=== PATIENT | female | born 1935 | race Two or more races ===

== ENCOUNTER → 2024-12-31 | Day surgery (SDC) | payer MEDICARE, OTHER ==
[2024-12-27 10:25] LABS: Basophils # (auto) 0 10 ^3/uL (0-0.2); Basophils % (auto) 0.2 % (0.0-2.0); Eosinophils # (auto) 0.1 10 ^3/uL (0-0.8); Hematocrit 40.5 % (36.0-46.0); Hemoglobin 13.7 g/dL (12.2-16.2); Lymphocytes # (auto) 1.4 10 ^3/uL (0.4-5.4); Lymphocytes % (auto) 16.7 % (10.0-50.0); Mean Corpuscular Hemoglobin 33.4 pg (28.0-32.0); Mean Corpuscular Hgb Conc. 33.9 g/dL (32.0-36.0); Mean Corpuscular Volume 98.7 fL (80.0-100.0); Monocytes # (auto) 0.9 10 ^3/uL (0-1.3); Monocytes % (auto) 10.9 % (0.0-12.0); Neutrophils # (auto) 6.1 10 ^3/uL (1.6-8.6); Neutrophils % (auto) 71.2 % (37.0-80.0); Platelet Count (auto) 251 10^3/uL (140-450); Red Blood Cells 4.11 10^6/uL (4.0-5.20); Red Cell Distribution Width 14.4 % (11.8-14.3); White Blood Cell 8.5 10^3/uL (4.4-10.8)
[2024-12-27 10:48] LABS: Alanine Aminotransferase 21 U/L (7-40); Alkaline Phosphatase 74 U/L (46-116); Anion Gap 7 (5-15); Aspartate Aminotransferase 18 U/L (13-40); BUN/Creatinine Ratio 26.8 (10.0-20.0); Blood Urea Nitrogen 19 mg/dL (9-23); Carbon Dioxide 27 mmol/L (20-31); Chloride 104 mmol/L (98-107); Glucose 105 mg/dL (74-106); Potassium 4.7 mmol/L (3.5-5.1); Sodium 138 mmol/L (136-145); Total Protein 7.6 g/dL (5.7-8.2)
[2024-12-27 10:49] LABS: Albumin 4.8 g/dL (3.2-4.8); Bilirubin, Total 0.5 mg/dL (0.2-1.0)
[2024-12-27 10:50] LABS: INR 0.99 (0.9-1.15); Partial Thromboplastin Time 28.2 SEC (24.5-34.5); Prothrombin Time 10.5 sec (9.3-11.8)
[~2024-12-31] VITALS: Ht 153 cm; Wt 59.0 kg
[~2024-12-31] MED LIST: AMLO1TAB22 PO; IBUP-1456 PO; MIDAZOLAM HCL 2MG/2ML 2ml VIAL (1mg/ml) ONE; MULT-1018 OR; PROPOFOL 10 MG/ML 20 ML IV ONE; ceFAZolin 2 GM/D5W50ml 50 ML IV ONE; fentaNYL CITRATE 100 MCG/2 ML VL ONE
[2024-12-31 07:45] VITALS: BP 178/85; PULSE 67; RESP 20; TEMP 98.3; O2SAT 96
== END | disposition home or self-care (01) ==
LOC: SUR 07:34
PROVIDERS: ATTEND Orthopaedic Surgery
DX: M87.052 Idiopathic aseptic necrosis of left femur (principal); M16.7 Other unilateral secondary osteoarthritis of hip; Z53.8 Procedure and treatment not carried out for other reasons
CPT/HCPCS: 36415; 80053; 83036; 85025; 85610; 85730; 86850; 86900; 86901; J0690; J2250; J2704; J3010

== ENCOUNTER 2025-02-25 07:41 | Inpatient (IN) | payer MEDICARE, OTHER ==
[2025-02-24 11:37] LABS: Hematocrit 40.9 % (36.0-46.0); Hemoglobin 13.9 g/dL (12.2-16.2); Mean Corpuscular Hemoglobin 34.2 pg (28.0-32.0); Mean Corpuscular Volume 100.9 fL (80.0-100.0); Nucleated Red Blood Cells % 0.1 %
[2025-02-24 11:46] LABS: INR 0.99 (0.9-1.15); Partial Thromboplastin Time 27.6 SEC (24.5-34.5); Prothrombin Time 10.5 sec (9.3-11.8)
[2025-02-24 12:18] LABS: Alanine Aminotransferase 20 U/L (7-40); Albumin 4.8 g/dL (3.2-4.8); Alkaline Phosphatase 73 U/L (46-116); Anion Gap 10 (5-15); BUN/Creatinine Ratio 28.8 (10.0-20.0); Blood Urea Nitrogen 19 mg/dL (9-23); Carbon Dioxide 27 mmol/L (20-31); Chloride 105 mmol/L (98-107); Glucose 97 mg/dL (74-106); Potassium 3.8 mmol/L (3.5-5.1); Sodium 142 mmol/L (136-145); Total Protein 7.4 g/dL (5.7-8.2)
[2025-02-24 12:19] LABS: Bilirubin, Total 0.3 mg/dL (0.2-1.0)
[2025-02-24 12:22] LABS: Calcium 10.7 mg/dL (8.7-10.4)
[~2025-02-25] VITALS: Ht 153 cm; Wt 67.9 kg
[~2025-02-25 07:41] MED LIST changes: -MIDAZOLAM HCL 2MG/2ML 2ml VIAL (1mg/ml) ONE; -PROPOFOL 10 MG/ML 20 ML IV ONE; -ceFAZolin 2 GM/D5W50ml 50 ML IV ONE; -fentaNYL CITRATE 100 MCG/2 ML VL ONE
[2025-02-25] MEDS ORDERED: MIDAZOLAM HCL 2MG/2ML 2ml VIAL (1mg/ml) ONE (08:41)
[2025-02-25] MEDS ORDERED: fentaNYL CITRATE 100 MCG/2 ML VL ONE (08:41)
[2025-02-25] MEDS: TRANEXAMIC ACID 20 ML ONE (08:41)
[2025-02-25] MEDS ORDERED: PROPOFOL 10 MG/ML 20 ML IV ONE (08:41)
[2025-02-25] MEDS: ROPIVACAINE 0.5% (5MG/ML) 20ML AMPULE IJ ONE ×2 (08:41→11:45)
[2025-02-25] MEDS: BUPIVACAINE 0.25% INJ 50ML VIAL ONE (08:41)
[2025-02-25] MEDS: KETOROLAC TROMETH 30 MG/ML 1ML VIAL ONE (08:43)
[2025-02-25] MEDS: BUPIVACAINE 0.5% P/F INJ 10 ML VIAL ONE (08:50)
[2025-02-25] MEDS ORDERED: MORPHINE SULF PF 5 MG/10 ML VIAL ONE (09:24)
[2025-02-25] MEDS: ceFAZolin 2 GM/D5W50ml 50 ML IV ONE (10:00)
[2025-02-25] MEDS ORDERED: hydrALAZINE HCL 20 MG/ML VL ONE (10:59)
--- NOTE | 2025-02-25 11:42 | DVHOP2 ---
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 These include but are not limited to complications of anesthesia, postoperative infection, incomplete relief of symptoms, recurrence of symptoms, damage to blood vessels, nerves and tendons, deep venous thrombosis, pulmonary embolism and possible need for repeat surgery in the future. Complications: None Estimated Blood Loss: 100 cc Fluids: See anesthesia record Findings: Head deformity, denuded cartilage eburnated bone osteophytes proximal migration of hip with medial acetabular wear early to the pelvis inner cortex Indications for Surgery: Left hip degenerative arthritis with severe pain and functional impairment Name of Procedure Performed Left total hip arthroplasty Procedure Details Procedure Details: The patient was brought to the operating room and given spinal anesthetic with adequate analgesia obtained. The patient was positioned lateral decubitus with the operative side up, stabilized with hip positioners. Axillary roll applied and lower extremities well-padded. Preop patient received IV Ancef, cefepime and IV tranexamic acid. Surgical timeout was performed verifying patient, laterality and procedure. The hip and lower extremity were prepped and draped in sterile fashion. Incision was made over the greater trochanter. Subcutaneous dissection and hemostasis were performed with Bovie and aqua mantis. I identified the fascia which was incised with Bovie and Charnley retractor inserted. I identified the gluteus medius that was split at the junction of its anterior and middle thirds with Bovie then incised off the anterior greater trochanter. I incised the anterior gluteus minimus which was elevated off the capsule. I elevated the reflected head of the rectus. I then performed anterior capsulectomy with Bovie. I extended capsular incision posterior medially and superior laterally. The head was dislocated. Femoral neck cut was made with saw and head removed. Head diameter was calipered on the back table. I adjusted retractors to expose the acetabulum. I circumfer entially removed labral tissue with Bovie. I removed foveal tissue with Bovie, curette and rongeur. I then began reaming sequentially paying attention to inclination and version as I went. I trialed which was stable so acetabular implant was brought into the field and tapped into the acetabulum with good fixation achieved. I then brought up the flat liner which was spun to make sure there was no soft tissue entrapment then tapped in and stability verified. I then brought my attention to the proximal femur. The leg was placed in the sterile bag anteriorly. I cleaned up soft tissue at the greater trochanter shoulder with Bovie. I then used a rongeur to clip the lateral neck. I then used a box osteotome, canal finder and lateralizing rasp. I sequentially broached to size 4. I revised the femoral neck cut with calcar planer. I trialed with a +4 neck length and 32 head which was stable. Intraoperative AP pelvis x-ray was obtained to verify length, offset and implant size. The hip appeared short though it did previously migrated quite a bit proximally preop. Stem looked to be appropriate size. The hip was dislocated. Neck and head trial removed. Broach was removed. I tapped in the femoral implant with good fixation achieved. I trialed with a plus seven head which was stable. I cleaned and dried the Burrows taper and tapped on the ceramic head. The hip was again reduced and tested for stability which was good. I irrigated with bactisurge. I placed a 2 grams of vancomycin in the deep and superficial wound. I repaired the minimus and medius to the anterior greater trochanter with #[5] FiberWire in running fashion . I oversewed the repair with 0 Vicryl. I repaired the fascia with #1 Ethibond interrupted [id number]. Deep subcutaneous tissue was closed with 0 Vicryl. Superficial subcutaneous tissue was closed with 2-0 Vicryl. The skin was closed with karthik. I then applied the Delroy closed wound suction. Patient tolerated the procedure well and was brought to the recovery room in stable condition. Condition Stable Disposition Still a Patient JONAS TONG MD Feb 25, 2025 11:42
[2025-02-25] MEDS ORDERED: ONDANSETRON HCL 4 MG/2 ML VIAL IV PRN (11:45)
[2025-02-25] MEDS: VANCOMYCIN HCL 1000 MG VL ONE (11:45)
--- NOTE | 2025-02-25 12:03 | DVH ---
CLINICAL INDICATION: SURGERY TECHNIQUE: 1 radiographic views of the pelvis were obtained. Comparison: None FINDINGS/IMPRESSION: Status post right hip arthroplasty
[2025-02-25 12:07] VITALS: O2SAT 98
--- NOTE | 2025-02-25 12:52 | DVH ---
CLINICAL INDICATION: postop TECHNIQUE: 1 radiographic views of the pelvis were obtained. Comparison: XY PELVIS AP on DOS: 02/25/25 FINDINGS/IMPRESSION: Status post right hip arthroplasty.
[2025-02-25] MEDS: HYDROmorphone HCL 2 MG/ML VL/or syr IV PRN (13:42)
[2025-02-25] MEDS: ACETAMINOPHEN IV 1000 MG/100ML (10MG/ML) IV PRN (13:57)
[2025-02-25] MEDS: ONDANSETRON HCL 4 MG/2 ML VIAL IV ONE (15:54)
[2025-02-25] MEDS: ACETAMINOPHEN 325 MG TAB PO SCH (15:55)
[2025-02-25 16:54] VITALS: BP 128/77; PULSE 60; RESP 18; TEMP 98.1; O2SAT 98
[2025-02-25] MEDS: SODIUM CHLORIDE 0.9% 1,000 ML IV SCH (17:03)
[2025-02-25] MEDS: ceFAZolin 2 GM/D5W50ml 50 ML IV SCH (17:03)
[2025-02-25 20:00] VITALS: PULSE 63; RESP 20; O2SAT 96
[2025-02-25 21:00] VITALS: BP 129/76; PULSE 63; RESP 20; TEMP 97.7; O2SAT 96
[2025-02-25] MEDS: PREGABALIN 25 MG CAP PO SCH (21:42)
[2025-02-26] VITALS (8 sets, daily range): BP systolic 113–134; BP diastolic 60–79; PULSE 65–77; RESP 16–22; TEMP 97.5–99.2; O2SAT 92–96
[2025-02-26] MEDS: KETOROLAC TROMETH 30 MG/ML 1ML VIAL IV ONE (01:27)
[2025-02-26 06:54] LABS: Calcium 9.5 mg/dL (8.7-10.4); Chloride 103 mmol/L (98-107); Potassium 3.6 mmol/L (3.5-5.1); Sodium 138 mmol/L (136-145)
[2025-02-26 06:55] LABS: Anion Gap 12 (5-15); Carbon Dioxide 23 mmol/L (20-31)
[2025-02-26 07:00] LABS: BUN/Creatinine Ratio 27.2 (10.0-20.0); Blood Urea Nitrogen 22 mg/dL (9-23)
[2025-02-26 07:02] LABS: Glucose 144 mg/dL (74-106)
--- NOTE | 2025-02-26 09:15 | DVHDS2 ---
Discharge Summary Date of Admission Feb 25, 2025 at 11:28 Date of Discharge: Feb 26, 2025 Labs/Diagnostic Data: Laboratory Results Test 02/26/25 04:54 02/24/25 11:00 Sodium Level 138 mmol/L (136-145) Potassium Level 3.6 mmol/L (3.5-5.1) Chloride Level 103 mmol/L (98-107) Carbon Dioxide Level 23 mmol/L (20-31) Anion Gap 12 (5-15) Blood Urea Nitrogen 22 mg/dL (9-23) Creatinine 0.81 mg/dL (0.550-1.02) Glomerular Filtration Rate Calc 70 mL/min (>90) BUN/Creatinine Ratio 27.2 (10.0-20.0) Serum Glucose 144 mg/dL (74-106) Calcium Level 9.5 mg/dL (8.7-10.4) White Blood Count 6.9 10^3/uL (4.4-10.8) Red Blood Count 4.06 10^6/uL (4.0-5.20) Hemoglobin 13.9 g/dL (12.2-16.2) Hematocrit 40.9 % (36.0-46.0) Mean Corpuscular Volume 100.9 fL (80.0-100.0) Mean Corpuscular Hemoglobin 34.2 pg (28.0-32.0) Mean Corpuscular Hemoglobin Concent 33.9 g/dL (32.0-36.0) Red Cell Distribution Width 14.1 % (11.8-14.3) Platelet Count 227 10^3/uL (140-450) Mean Platelet Volume 7.2 fL (6.9-10.8) Neutrophils (%) (Auto) 63.9 % (37.0-80.0) Lymphocytes (%) (Auto) 22.9 % (10.0-50.0) Monocytes (%) (Auto) 11.2 % (0.0-12.0) Eosinophils (%) (Auto) 1.6 % (0.0-7.0) Basophils (%) (Auto) 0.4 % (0.0-2.0) Neutrophils # (Auto) 4.4 10 ^3/uL (1.6-8.6) Lymphocytes # (Auto) 1.6 10 ^3/uL (0.4-5.4) Monocytes # (Auto) 0.8 10 ^3/uL (0-1.3) Eosinophils # (Auto) 0.1 10 ^3/uL (0-0.8) Basophils # (Auto) 0 10 ^3/uL (0-0.2) Nucleated Red Blood Cells 0.1 % Prothrombin Time 10.5 sec (9.3-11.8) Prothrombin Time INR 0.99 (0.9-1.15) Activated Partial Thromboplast Time 27.6 SEC (24.5-34.5) Total Bilirubin 0.3 mg/dL (0.2-1.0) Aspartate Amino Transferase (AST) 29 U/L (13-40) Alanine Aminotransferase (ALT) 20 U/L (7-40) Alkaline Phosphatase 73 U/L (46-116) Total Protein 7.4 g/dL (5.7-8.2) Albumin 4.8 g/dL (3.2-4.8) Other Laboratory Tests 02/26/25 04:54 02/24/25 11:00 Brief Hx & Hospital Course: PATIENT WAS BROUGHT TO THE HOSPITAL YESTERDAY TO UNDERGO A LEFT TOTAL HIP ARTHROPLASTY. SHE TOLERATED THE PROCEDURE WELL WITHOUT COMPLICATIONS AND WAS KEPT OVERNIGHT FOR POSTOPERATIVE OBSERVATION. SHE HAS REMAINED MEDICALLY STABLE BUT REPORTS SOME SEVERE POSTOPERATIVE HIP PAIN LAST NIGHT THAT IS BEING WELL MANAGED NOW WITH THE HELP OF PAIN MEDICATION. PATIENT NOTES THAT SHE HAS ONLY BEEN ABLE TO STAND UP AT BEDSIDE BUT HAS NOT BEEN ABLE TO WALK WITH PHYSICAL THERAPY OF YET. PATIENT IS OTHERWISE FEELING WELL DENYING ANY OTHER COMPLAINTS OR CONCERNS DURING MY EVALUATION. I INSTRUCTED THE PATIENT TO THE IF SHE IS ABLE TO GET UP AND WALK WITH THE HELP OF PHYSICAL THERAPY AND HER WALKER AND SHE IS ABLE TO GET DOWN THE GRANT AND TO THE NURSE'S STATION AND BACK TO HER ROOM WE MAY DISCHARGE HER HOME. PATIENT UNDERSTOOD AND AGREED. Condition at Discharge: Stable Final Diagnosis/Problems List Same Discharge Disposition: Home Discharge Instruct/Medications Diet: Regular Activity: See Comment Activity comment: Patient to remain weight-bearing as tolerated with the assistance of a walker. Follow Up/Referral: I instructed the patient to follow up with our office in 10-14 days for her 1st postoperative evaluation Medications: Rx sent via our outpatient EMR system Scheduled Amlodipine Besylate (Amlodipine Besylate), 5 MG PO DAILY, (Reported) Multiple Vitamin (Multivitamins), 1 TAB OR DAILY, (Reported) Scheduled PRN Ibuprofen (Ibuprofen), 800 MG PO PRN PRN for prn, (Reported) Discharge Statement: "Patient was advised to return to the ER or call 911 if any headaches, dizziness, shortness of breath, chest pain, abdominal pain, bleeding, fevers, or worsening of medical condition. Patient was counseled about treatment plan, medications, possible side effects, patientverbalized understanding. All questions were answered to the best of my ability. This discharge took greater then 30 minutes in planning, reviewing documentation, counseling the patient, and discussing with other team members." ASSESSMENT ASSESSMENT Assessment Same DENIZ RODRIGUEZ Feb 26, 2025 09:15
--- NOTE | 2025-02-26 09:17 | DVHPN2 ---
Progress Note - Dictate Date Seen: Feb 26, 2025 Medical Necessity Reason Pt with a Central, PICC or Fol: No Subjective Patient was lying comfortably in bed during my evaluation reports some postoperative hip pain that is being well managed with the help of pain medication now but does report that last night was having severe pain. Patient notes that she has only perform some gentle [id number] exercises while in bed but has not yet gotten up and walked with physical therapy. Patient is otherwise feeling well denying any other complaints or concerns during my evaluation. vital signs Vital Sign Date Time Temp Pulse Resp B/P (MAP) Pulse Ox O2 Delivery O2 Flow Rate FiO2 02/26/25 05:00 98.7 72 16 113/60 (77) 93 98.7 02/25/25 20:00 Room Air* 0 21 Total Intake and Output 02/25/25 02/25/25 02/26/25 15:00 23:00 07:00 Intake Total 150 ml 0 ml 0 ml Output Total 650 ml 250 ml Balance 150 ml -650 ml -250 ml medications Current Medications Medications Dose Ordered Sig/Ata Route Start Time Stop Time Status Last Admin Dose Admin Amlodipine Besylate 5 mg DAILY PO 02/26/25 10:00 Pregabalin 50 mg BID PO 02/25/25 22:00 02/25/25 21:42 50 MG Apixaban 2.5 mg BID PO 02/26/25 10:00 04/02/25 09:59 Sodium Chloride 1,000 ml @ 125 mls/hr Q8H IV 02/25/25 11:30 02/26/25 06:22 125 MLS/HR Acetaminophen 650 mg Q6HP PO 02/25/25 12:00 02/25/25 17:54 650 MG Ondansetron HCl 4 mg Q4HP PRN IV 02/25/25 11:45 Oxycodone HCl 5 mg Q4HP PRN PO 02/25/25 11:30 02/25/25 23:34 5 MG Oxycodone HCl 10 mg Q4HP PRN PO 02/25/25 11:30 02/26/25 06:29 10 MG objective A&O x4 in no acute distress Hip range of motion grossly limited with pain on movement Delroy dressing clean, dry, intact, and maintaining suction No distal edema or calf tenderness to palpation Neurovascularly intact with cap refill less than 2 seconds laboratory and microbiology Laboratory Tests 02/26/25 04:54 02/24/25 11:00 Test 02/26/25 04:54 Range/Units Serum Glucose 144 H 74-106 mg/dL Assessment/Plan Patient to be discharged home once she is able to get up and walk with the help of physical therapy and her walker and she is able to get down to the nurse's station and back to her room. I advised the patient to follow up with our office in 10-14 days for her 1st postoperative evaluation and to maintain her dressings clean, dry, intact, and maintaining suction and to call our office if she has any further questions or concerns. Rx sent via our outpatient EMR system. She understood and agreed. Plan discussed with: Patient DENIZ RODRIGUEZ Feb 26, 2025 09:17
[2025-02-26] MEDS: APIXABAN 2.5 MG TAB PO SCH (10:42)
--- NOTE | 2025-02-26 13:36 | DVHINCON2 ---
Date Seen: Feb 26, [address] TONG Family History: Aneurysm G8 MOTHER Allergies: Coded Allergies: NO KNOWN ALLERGIES (Unverified , 12/26/24) Home Meds Reported Medications Multiple Vitamin (Multivitamins) Tab, 1 TAB OR DAILY, TAB 12/26/24 Amlodipine Besylate (Amlodipine Besylate) 5 Mg Tab, 5 MG PO DAILY, TAB 12/26/24 Ibuprofen (Ibuprofen) 800 Mg Tab, 800 MG PO PRN PRN for prn, TAB 12/26/24 Current Medications Current Medications Medications (Trade) Dose Ordered Sig/Ata Route PRN Reason Start Time Stop Time Status Last Admin Amlodipine Besylate (Norvasc Tablet) 5 mg DAILY PO 02/26/25 10:00 02/26/25 10:42 Pregabalin (Lyrica Capsule) 50 mg BID PO 02/25/25 22:00 02/26/25 10:42 Apixaban (Eliquis) 2.5 mg BID PO 02/26/25 10:00 04/02/25 09:59 02/26/25 10:42 Cefazolin Sodium/ Dextrose 50 ml @ 50 mls/hr Q8HR IV 02/25/25 14:00 02/25/25 22:59 DC 02/25/25 21:41 Vital Signs Vital Signs Date Time Temp Pulse Resp B/P (MAP) Pulse Ox O2 Delivery O2 Flow Rate FiO2 02/26/25 10:42 118/62 02/26/25 09:00 98.5 70 16 92 98.5 02/26/25 08:05 Room Air* 0 21 Labs/Diagnostic Data Labs Test 02/26/25 04:54 02/24/25 11:00 Range/Units Sodium Level 138 136-145 mmol/L Potassium Level 3.6 3.5-5.1 mmol/L Chloride Level 103 98-107 mmol/L Carbon Dioxide Level 23 20-31 mmol/L Anion Gap 12 5-15 Blood Urea Nitrogen 22 9-23 mg/dL Creatinine 0.81 0.550-1.02 mg/dL Glomerular Filtration Rate Calc 70 >90 mL/min BUN/Creatinine Ratio 27.2 H 10.0-20.0 Serum Glucose 144 H 74-106 mg/dL Calcium Level 9.5 8.7-10.4 mg/dL White Blood Count 6.9 4.4-10.8 10^3/uL Red Blood Count 4.06 4.0-5.20 10^6/uL Hemoglobin 13.9 12.2-16.2 g/dL Hematocrit 40.9 36.0-46.0 % Mean Corpuscular Volume 100.9 H 80.0-100.0 fL Mean Corpuscular Hemoglobin 34.2 H 28.0-32.0 pg Mean Corpuscular Hemoglobin Concent 33.9 32.0-36.0 g/dL Red Cell Distribution Width 14.1 11.8-14.3 % Platelet Count 227 140-450 10^3/uL Mean Platelet Volume 7.2 6.9-10.8 fL Neutrophils (%) (Auto) 63.9 37.0-80.0 % Lymphocytes (%) (Auto) 22.9 10.0-50.0 % Monocytes (%) (Auto) 11.2 0.0-12.0 % Eosinophils (%) (Auto) 1.6 0.0-7.0 % Basophils (%) (Auto) 0.4 0.0-2.0 % Neutrophils # (Auto) 4.4 1.6-8.6 10 ^3/uL Lymphocytes # (Auto) 1.6 0.4-5.4 10 ^3/uL Monocytes # (Auto) 0.8 0-1.3 10 ^3/uL Eosinophils # (Auto) 0.1 0-0.8 10 ^3/uL Basophils # (Auto) 0 0-0.2 10 ^3/uL Nucleated Red Blood Cells 0.1 % Prothrombin Time 10.5 9.3-11.8 sec Prothrombin Time INR 0.99 0.9-1.15 Activated Partial Thromboplast Time 27.6 24.5-34.5 SEC Total Bilirubin 0.3 0.2-1.0 mg/dL Aspartate Amino Transferase (AST) 29 13-40 U/L Alanine Aminotransferase (ALT) 20 7-40 U/L Alkaline Phosphatase 73 46-116 U/L Total Protein 7.4 5.7-8.2 g/dL Albumin 4.8 3.2-4.8 g/dL Assessment SEE DICTATED NOTE Plan discussed with: Patient Date of Service: Feb 26, 2025 Billing Provider: SYLVAIN GARDINER MD Common Visit Codes: [id number] INP/OBS CARE (HIGH) Secondary Visit Codes: [id number] CARE PLAN 30 MINUTES SYLVAIN GARDINER MD Feb 26, 2025 13:36
--- NOTE | 2025-02-26 15:46 | DVHINCON2 ---
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 The patient at this time complains of pain and has been able to ambulate about 3-4 steps. No chest pain, no shortness of breath, no nausea or vomiting. REVIEW OF SYSTEMS: Otherwise currently negative. PAST MEDICAL HISTORY: Significant for hypertension. MEDICATIONS: She takes amlodipine and ibuprofen. ALLERGIES: No known drug allergies. SOCIAL HISTORY: Denies smoking or alcohol. Lives at home with her son. FAMILY HISTORY: Negative. PHYSICAL EXAMINATION: GENERAL: The patient is awake and alert. VITAL SIGNS: Temperature of 98.5, pulse 70 per minute, blood pressure 118/62. SHEENT: Unremarkable. NECK: There is no JVD. No pedal edema. LUNGS: Equal bilaterally. No added sounds. CARDIOVASCULAR: S1 and S2 is regular. No murmurs. ABDOMEN: Soft. There is no organomegaly. NEUROLOGIC: Nonfocal. MUSCULOSKELETAL: There is a dressing at the site of the left hip. ASSESSMENT AND PLAN: * Hypertension for which the patient will resume on amlodipine. * Status post left hip surgery for avascular necrosis for which she will receive physical therapy and pain medications. ADVANCED CARE PLANNING: The patient is a full code-Time spent was 18 minutes. MD IKER Leavitt/[place] TID: [id number] RECEIPT: [id number] MTDD
[2025-02-27 05:00] VITALS: BP 145/73; PULSE 84; RESP 17; TEMP 97.5; O2SAT 94
[2025-02-27 08:00] VITALS: RESP 20
[2025-02-27 08:34] VITALS: BP 148/75; PULSE 83; RESP 16; TEMP 98.6; O2SAT 92
[2025-02-27] MEDS: hydrALAZINE HCL 20 MG/ML VL IV ONE (10:22)
[2025-02-27] MEDS: MORPHINE SULFATE INJ 2 MG/ml SYRG IV ONE (10:22)
--- NOTE | 2025-02-27 11:07 | DVHPN2 ---
Progress Note Date Seen: Feb 27, 2025 Medical Necessity Reason Pt with a Central, PICC or Fol: No Subjective Patient reports: No new complaints Review of Systems: HEENT:Normal, CVS:Normal, RESPIRATORY:Normal, GI:Normal, :Normal, MSK:Normal, NEURO:Normal Objective vital signs Vital Sign Date Time Temp Pulse Resp B/P (MAP) Pulse Ox O2 Delivery O2 Flow Rate FiO2 02/27/25 10:22 148/75 02/27/25 08:34 98.6 83 16 92 98.6 02/26/25 20:00 Room Air* 0 21 Total Intake and Output 02/26/25 02/26/25 02/27/25 15:00 23:00 07:00 Intake Total 800 ml Output Total 175 ml 300 ml Balance 625 ml -300 ml medications Current Medications Medications Dose Ordered Sig/Ata Route Start Time Stop Time Status Last Admin Dose Admin Amlodipine Besylate 5 mg DAILY PO 02/26/25 10:00 02/27/25 10:22 5 MG Pregabalin 50 mg BID PO 02/25/25 22:00 02/27/25 10:20 50 MG Apixaban 2.5 mg BID PO 02/26/25 10:00 04/02/25 09:59 02/27/25 10:21 2.5 MG Acetaminophen 650 mg Q6HP PO 02/25/25 12:00 02/25/25 17:54 650 MG Ondansetron HCl 4 mg Q4HP PRN IV 02/25/25 11:45 Oxycodone HCl 5 mg Q4HP PRN PO 02/25/25 11:30 02/26/25 20:43 5 MG Oxycodone HCl 10 mg Q4HP PRN PO 02/25/25 11:30 02/27/25 10:21 10 MG Examination: GENERAL:Normal, HEENT:Normal, NECK:Normal, LUNGS:Normal, CVS:Normal, ABDOMEN:Normal, MSK:Normal, MSK:Abnormal (left hip dressing), SKIN:Normal, NEURO:Normal, :Normal laboratory and microbiology Laboratory Tests 02/26/25 04:54 02/24/25 11:00 Test 02/26/25 04:54 Range/Units Serum Glucose 144 H 74-106 mg/dL Problem List/Assessment/Plan Problem List/Assessment/Plan ASSESSMENT AND PLAN: * Hypertension for which the patient will resume on amlodipine, increase dose * Status post left hip surgery for avascular necrosis for which she will receive physical therapy and pain medications. Plan discussed with: Patient My Orders My Orders Orders - SYLVAIN GARDINER MD Procedure Category Date Status Time Amlodipine Tablet PHA 02/27/25 Transmitted (Norvasc Tablet) 22:00 Date of Service: Feb 27, 2025 Billing Provider: SYLVAIN GARDINER MD Common Visit Codes: [id number] INP/OBS CARE(HIGH) SYLVAIN GARDINER MD Feb 27, 2025 11:07
[2025-02-27 13:00] VITALS: BP 114/72; PULSE 64; RESP 16; TEMP 98.2; O2SAT 99
[2025-02-27 16:40] VITALS: BP 150/75; PULSE 82; RESP 17; TEMP 98.5; O2SAT 93
--- NOTE | 2025-02-27 17:57 | DVHPN2 ---
Progress Note - Dictate Date Seen: Feb 27, 2025 Medical Necessity Reason Pt with a Central, PICC or Fol: No Subjective Patient was lying comfortably in bed during my evaluation reports some postoperative hip pain that is being well managed with the help of pain medication. Patient notes that she has only perform some gentle kkunn-uz-ctaoos exercises while in bed and was able to get up and walk with the help of physical therapy and her walker but was only able to take a few steps in her room yesterday and early this morning. Patient is otherwise feeling well denying any other complaints or concerns during my evaluation. vital signs Vital Sign Date Time Temp Pulse Resp B/P (MAP) Pulse Ox O2 Delivery O2 Flow Rate FiO2 02/27/25 16:40 98.5 82 17 150/75 (100) 93 98.5 02/27/25 08:00 Room Air* 0 21 Total Intake and Output 02/26/25 02/26/25 02/27/25 15:00 23:00 07:00 Intake Total 800 ml Output Total 175 ml 300 ml Balance 625 ml -300 ml medications Current Medications Medications Dose Ordered Sig/Ata Route Start Time Stop Time Status Last Admin Dose Admin Pregabalin 50 mg BID PO 02/25/25 22:00 02/27/25 10:20 50 MG Apixaban 2.5 mg BID PO 02/26/25 10:00 04/02/25 09:59 02/27/25 10:21 2.5 MG Acetaminophen 650 mg Q6HP PO 02/25/25 12:00 02/25/25 17:54 650 MG Ondansetron HCl 4 mg Q4HP PRN IV 02/25/25 11:45 Oxycodone HCl 5 mg Q4HP PRN PO 02/25/25 11:30 02/26/25 20:43 5 MG Oxycodone HCl 10 mg Q4HP PRN PO 02/25/25 11:30 02/27/25 15:13 10 MG Amlodipine Besylate 5 mg BID PO 02/27/25 22:00 objective A&O x4 in no acute distress Hip range of motion grossly limited with pain on movement Delroy dressing clean, dry, intact, and maintaining suction No distal edema or calf tenderness to palpation Neurovascularly intact with cap refill less than 2 seconds laboratory and microbiology Laboratory Tests 02/26/25 04:54 02/24/25 11:00 Test 02/26/25 04:54 Range/Units Serum Glucose 144 H 74-106 mg/dL Assessment/Plan Patient to be discharged home once she is able to get up and walk with the help of physical therapy and her walker and she is able to get down to the nurse's station and back to her room, if patient continues to have difficulties ambulating with the assistance we will be considering her for a transfer to a assisted facility for further assistance during the acute phase of her recovery. I advised the patient to follow up with our office in 10-14 days for her 1st postoperative evaluation and to maintain her dressings clean, dry, intact, and maintaining suction and to call our office if she has any further questions or concerns. Rx sent via our outpatient EMR system. She understood and agreed. Plan discussed with: Patient DENIZ RODRIGUEZ Feb 27, 2025 17:57
[2025-02-27 21:00] VITALS: BP 127/46; PULSE 81; RESP 18; TEMP 99.5; O2SAT 94
[2025-02-28] VITALS (9 sets, daily range): BP systolic 98–133; BP diastolic 60–71; PULSE 66–133; RESP 16–20; TEMP 97.7–101; O2SAT 92–100
--- NOTE | 2025-02-28 07:26 | DVHPN2 ---
Progress Note - Dictate Date Seen: Feb 28, 2025 Medical Necessity Reason Pt with a Central, PICC or Fol: No Subjective Patient was lying comfortably in bed during my evaluation reports some continued postoperative hip pain that is being well managed with the help of pain medication. Patient notes that she was able to get up and walk with the help of physical therapy and her walker yesterday and felt pretty stable but last night began to experience some uncomfortable chest sensations as well as palpitations and had an EKG and was told that she had AFib. Patient is otherwise feeling well denying any other complaints or concerns during my evaluation. vital signs Vital Sign Date Time Temp Pulse Resp B/P (MAP) Pulse Ox O2 Delivery O2 Flow Rate FiO2 02/28/25 05:00 101.0 82 18 133/65 (87) 92 101.0 02/27/25 20:00 Room Air* 0 21 Total Intake and Output 02/27/25 02/27/25 02/28/25 15:00 23:00 07:00 Intake Total 525 ml 200 ml Balance 525 ml 200 ml medications Current Medications Medications Dose Ordered Sig/Ata Route Start Time Stop Time Status Last Admin Dose Admin Pregabalin 50 mg BID PO 02/25/25 22:00 02/27/25 22:37 50 MG Apixaban 2.5 mg BID PO 02/26/25 10:00 04/02/25 09:59 02/27/25 22:38 2.5 MG Acetaminophen 650 mg Q6HP PO 02/25/25 12:00 02/25/25 17:54 650 MG Ondansetron HCl 4 mg Q4HP PRN IV 02/25/25 11:45 Oxycodone HCl 5 mg Q4HP PRN PO 02/25/25 11:30 02/26/25 20:43 5 MG Oxycodone HCl 10 mg Q4HP PRN PO 02/25/25 11:30 02/27/25 22:22 10 MG Amlodipine Besylate 5 mg BID PO 02/27/25 22:00 02/27/25 22:38 5 MG objective A&O x4 in no acute distress Hip range of motion grossly limited with pain on movement Delroy dressing clean, dry, intact, and maintaining suction No distal edema or calf tenderness to palpation Neurovascularly intact with cap refill less than 2 seconds laboratory and microbiology Laboratory Tests 02/26/25 04:54 02/24/25 11:00 Test 02/26/25 04:54 Range/Units Serum Glucose 144 H 74-106 mg/dL Assessment/Plan Continue current management as well as pain control and physical therapy and patient to remain weight-bearing as tolerated with the assistance of a walker. Given the patient's new EKG findings of AFib with RVR we will be placing a cardiology consult for further evaluation and management. We will continue observing the patient for now. Plan discussed with: Patient DENIZ RODRIGUEZ Feb 28, 2025 07:26
[2025-02-28] MEDS: AMIODARONE BOLUS KIT 100 ML IV ONE (08:01)
[2025-02-28] MEDS: AMIODARONE 360mg/200mL PREMIX 200 ML IV ONE (08:18)
[2025-02-28] MEDS: METOPROLOL TARTRATE 25 MG TAB PO SCH (09:39)
[2025-02-28 11:55] LABS: Magnesium 2.0 mg/dL (1.6-2.6)
[2025-02-28 11:57] LABS: Cholesterol 162.0 mg/dL (< 200)
[2025-02-28 11:59] LABS: HDL Cholesterol 32.0 mg/dL (40-59); Triglycerides 169.0 mg/dL (< 150)
[2025-02-28] MEDS: AMIODARONE 360mg/200mL PREMIX 200 ML IV SCH (14:39)
--- NOTE | 2025-02-28 15:11 | ECG ---
[facility] Test Date: 2025-02-28 Test Time: 07:01:58 Pat Name: ELEAZAR HICKMAN Department: Room: 0271T Gender: F Component Prep Operator: KERRY : 1935 Requested By: DENIZ RODRIGUEZ Order Number: [id number] Reading MD: Edd German Measurements Intervals Vaughn Rate: 148 P: 0 OR: 0 QRS: 11 QRSD: 81 T: 147 QT: 264 QTc: 415 Interpretive Statements Atrial fibrillation with rapid V-rate LVH with secondary repolarization abnormality ST depression, probably rate related Electronically Signed On 03-05-2025 13:51:21 PDT by Edd German Please click the below link to view image of tracing.
--- NOTE | 2025-02-28 15:46 | DVHINCON2 ---
Date Seen: Feb 28, 2025 Referring Physician DAMON Vang Reason for Consultation New onset AFib RVR History of Present Illness This is an 89-year-old female patient who presents to this facility status post left hip arthroplasty. The patient was admitted postprocedure and kept overnight for observation. Today, the patient began experiencing palpitations which prompted the bedside nurse to do a twelve lead electrocardiogram which revealed atrial fibrillation with rapid ventricular response. The patient was upgraded to telemetry and given an amiodarone bolus and amiodarone drip per hospitalist. At the time of assessment, the patient remains in atrial fibrillation with rapid ventricular response. Significant past medical history includes hypertension and dyslipidemia . The patient reports that she has seen a quality assurance analyst one time for preprocedural Cardiac clearance. She denies regularly following up with a quality assurance analyst in the outpatient setting. Past Medical History Past medical history reviewed. No other significant than mentioned above. Past Surgical History Left knee replacement Family History: Aneurysm G8 MOTHER Family History Family history reviewed. Social History Denies the use of tobacco, alcohol or illicit drugs. Allergies: Coded Allergies: NO KNOWN ALLERGIES (Unverified , 12/26/24) Home Meds Reported Medications Multiple Vitamin (Multivitamins) Tab, 1 TAB OR DAILY, TAB 12/26/24 Amlodipine Besylate (Amlodipine Besylate) 5 Mg Tab, 5 MG PO DAILY, TAB 12/26/24 Ibuprofen (Ibuprofen) 800 Mg Tab, 800 MG PO PRN PRN for prn, TAB 12/26/24 Home Meds Home medications reviewed. Current Medications Current Medications Medications (Trade) Dose Ordered Sig/Ata Route PRN Reason Start Time Stop Time Status Last Admin Amlodipine Besylate (Norvasc Tablet) 5 mg BID PO 02/27/25 22:00 02/28/25 09:39 Metoprolol Tartrate (Lopressor Tablet) 25 mg BID PO 02/28/25 10:00 02/28/25 09:39 Review of Systems Constitutional: No symptom reported Ears, Nose, & Throat: No symptom reported Eyes: No symptom reported Neurological: No symptoms reported Pulmonary/Respiratory: No symptoms reported Cardiovascular: Palpitations Gastrointestinal: No symptom reported Genitourinary: No symptom reported Musculoskeletal: No symptom reported Skin: No symptom reported Psychiatric: No symptom reported Endocrine: No symptom reported Hematologic/Lymphatic: No symptom reported Vital Signs Vital Signs Date Time Temp Pulse Resp B/P (MAP) Pulse Ox O2 Delivery O2 Flow Rate FiO2 02/28/25 13:00 98.1 108 16 98/71 (80) 95 98.1 02/28/25 08:00 Room Air* 0 21 Physical Exam General Appearance: Cooperative. Well-developed. Well-nourished. No acute distress. Pulmonary/Respiratory: Clear, bilateral breaths sounds. Cardiovascular/Chest: Irregularly irregular rate and rhythm. Peripheral Pulses: 2+ Radial (R). 2+ Radial (L). 2+ Pedal (R). 2+ Pedal (L) Abdominal Exam: Normal bowel sounds. Ankle Exam: Negative ankle edema Lower extremities: Negative lower extremity edema Neuro/Mental Status: A/OX4, coherent. Thoughts/Psych: Normal thought pattern. Appropriate mood and affect. Good judgment and insight. Appearance: No acute distress. Skin Exam: Normal inspection. Normal color. Warm and dry. Labs/Diagnostic Data Labs Test 02/28/25 10:41 02/26/25 04:54 02/24/25 11:00 Range/Units Hemoglobin A1c 5.1 <5.7 % A1C Magnesium Level 2.0 1.6-2.6 mg/dL Triglycerides Level 169 H < 150 mg/dL Cholesterol Level 162 < 200 mg/dL LDL Cholesterol 106 H < 100 mg/dL HDL Cholesterol 32 L 40-59 mg/dL Thyroid Stimulating Hormone (TSH) 2.08 0.55-4.78 uIU/mL Sodium Level 138 136-145 mmol/L Potassium Level 3.6 3.5-5.1 mmol/L Chloride Level 103 98-107 mmol/L Carbon Dioxide Level 23 20-31 mmol/L Anion Gap 12 5-15 Blood Urea Nitrogen 22 9-23 mg/dL Creatinine 0.81 0.550-1.02 mg/dL Glomerular Filtration Rate Calc 70 >90 mL/min BUN/Creatinine Ratio 27.2 H 10.0-20.0 Serum Glucose 144 H 74-106 mg/dL Calcium Level 9.5 8.7-10.4 mg/dL White Blood Count 6.9 4.4-10.8 10^3/uL Red Blood Count 4.06 4.0-5.20 10^6/uL Hemoglobin 13.9 12.2-16.2 g/dL Hematocrit 40.9 36.0-46.0 % Mean Corpuscular Volume 100.9 H 80.0-100.0 fL Mean Corpuscular Hemoglobin 34.2 H 28.0-32.0 pg Mean Corpuscular Hemoglobin Concent 33.9 32.0-36.0 g/dL Red Cell Distribution Width 14.1 11.8-14.3 % Platelet Count 227 140-450 10^3/uL Mean Platelet Volume 7.2 6.9-10.8 fL Neutrophils (%) (Auto) 63.9 37.0-80.0 % Lymphocytes (%) (Auto) 22.9 10.0-50.0 % Monocytes (%) (Auto) 11.2 0.0-12.0 % Eosinophils (%) (Auto) 1.6 0.0-7.0 % Basophils (%) (Auto) 0.4 0.0-2.0 % Neutrophils # (Auto) 4.4 1.6-8.6 10 ^3/uL Lymphocytes # (Auto) 1.6 0.4-5.4 10 ^3/uL Monocytes # (Auto) 0.8 0-1.3 10 ^3/uL Eosinophils # (Auto) 0.1 0-0.8 10 ^3/uL Basophils # (Auto) 0 0-0.2 10 ^3/uL Nucleated Red Blood Cells 0.1 % Prothrombin Time 10.5 9.3-11.8 sec Prothrombin Time INR 0.99 0.9-1.15 Activated Partial Thromboplast Time 27.6 24.5-34.5 SEC Total Bilirubin 0.3 0.2-1.0 mg/dL Aspartate Amino Transferase (AST) 29 13-40 U/L Alanine Aminotransferase (ALT) 20 7-40 U/L Alkaline Phosphatase 73 46-116 U/L Total Protein 7.4 5.7-8.2 g/dL Albumin 4.8 3.2-4.8 g/dL Assessment Atrial fibrillation with rapid ventricular response Rule out structural heart disease Hypertension Dyslipidemia Status post left total hip arthroplasty Plan/Recommendation We will continue with the following plan/recommendations (Dr. German): * Transthoracic echocardiogram to evaluate cardiac function * [id number] VASc score: 4 points, HAS-BLED score: 1 point * NOAC therapy, Eliquis * Continue antiarrhythmic agent, amiodarone * Continue beta-vandana for rate control * Monitor and replete electrolytes as needed, keep potassium greater than four and magnesium greater than two * Lipid-lowering agent * Close Cardiac surveillance * Pain management per primary care team Thank you for allowing us to care for this patient. Please call with any questions or concerns. Critical care time spent: 44 minutes This medical document was created using an electronic medical record system with voice recognition software and computerized dictation system. Although this document has been carefully reviewed, there might still be some phonetic and typographical errors. Occasional wrong-word or ``sound-alike substitutions may have occurred due to the inherent limitations of voice recognition software. These areas are purely typographical due to imperfections of the software programs and do not reflect any compromise in the patient's medical care. Please read the chart carefully and recognize, using context, where these substitutions have occurred. Plan discussed with: Patient NYHA Physical activity limitations: NA Date of Service: Feb 28, 2025 Billing Provider: CALE PALACIOS Cardiology Common Codes: [id number] INP/OBS CARE (High) Cardiology Consultation Codes: [id number] CONSULT <45MIN CALE PALACIOS Feb 28, 2025 15:46
--- NOTE | 2025-02-28 18:40 | DVHPN2 ---
Subjective developed afib overnight on amiodarone drip Reviewed: H&P, Labs Changes from previous H/P or p: No Changes Objective Vitals Vital Signs Date Time Temp Pulse Resp B/P (MAP) Pulse Ox O2 Delivery O2 Flow Rate FiO2 02/28/25 16:41 97.8 70 16 130/70 (90) 92 97.8 02/28/25 08:00 Room Air* 0 21 Intake/Output Intake and Output 02/28/25 07:00 Intake Total 725 ml Balance 725 ml Intake Oral 725 ml # Voids 4 General Appearance: Alert, Oriented X3 HEENT: Atraumatic Cardiovascular: Regular rate, Normal S1, Normal S2 Abdomen: Normal bowel sounds Medications Current Medications Medications Dose Ordered Sig/Ata Route Start Time Stop Time Status Last Admin Dose Admin Pregabalin 50 mg BID PO 02/25/25 22:00 02/28/25 09:38 50 MG Apixaban 2.5 mg BID PO 02/26/25 10:00 04/02/25 09:59 02/28/25 09:38 2.5 MG Acetaminophen 650 mg Q6HP PO 02/25/25 12:00 02/25/25 17:54 650 MG Ondansetron HCl 4 mg Q4HP PRN IV 02/25/25 11:45 Oxycodone HCl 5 mg Q4HP PRN PO 02/25/25 11:30 02/28/25 14:39 5 MG Oxycodone HCl 10 mg Q4HP PRN PO 02/25/25 11:30 02/27/25 22:22 10 MG Amlodipine Besylate 5 mg BID PO 02/27/25 22:00 02/28/25 09:39 5 MG Metoprolol Tartrate 25 mg BID PO 02/28/25 10:00 02/28/25 09:39 25 MG Atorvastatin Calcium 40 mg HS PO 02/28/25 22:00 UNV Laboratory Results Laboratory Tests 02/24/25 11:00 02/26/25 04:54 Chemistry Test 02/28/25 10:41 Magnesium Level 2.0 mg/dL (1.6-2.6) Lipid panel Test 02/28/25 10:41 Cholesterol Level 162 mg/dL (< 200) HDL Cholesterol 32 mg/dL (40-59) L Triglycerides Level 169 mg/dL (< 150) H HgA1c, TSH Test 02/28/25 10:41 Hemoglobin A1c 5.1 % A1C (<5.7) Thyroid Stimulating Hormone (TSH) 2.08 uIU/mL (0.55-4.78) Assessment/Plan Assessment/Plan * Hypertension for which the patient will resume on amlodipine, increase dose * Status post left hip surgery for avascular necrosis for which she will receive physical therapy and pain medications. #New onset afib on amiodarone drip echo ordered cardiology consulted Plan discussed with: Patient Date of Service: Feb 28, 2025 Billing Provider: DOUGLAS SALGADO MD Common Visit Codes: [id number] INP/OBS CARE(HIGH) DOUGLAS SALGADO MD Feb 28, 2025 18:40
[2025-02-28] MEDS: ATORVASTATIN 20 MG TAB PO SCH (22:19)
[2025-03-01] VITALS (8 sets, daily range): BP systolic 117–142; BP diastolic 58–75; PULSE 63–74; RESP 17–20; TEMP 97.6–98.9; O2SAT 92–98
[2025-03-01 08:00] LABS: Hematocrit 31.0 % (36.0-46.0); Hemoglobin 10.8 g/dL (12.2-16.2); Mean Corpuscular Hemoglobin 35.1 pg (28.0-32.0); Mean Corpuscular Volume 100.7 fL (80.0-100.0); Nucleated Red Blood Cells % 0.1 %
[2025-03-01 08:18] LABS: Anion Gap 10 (5-15); Carbon Dioxide 26 mmol/L (20-31); Chloride 104 mmol/L (98-107); Potassium 3.9 mmol/L (3.5-5.1); Sodium 140 mmol/L (136-145)
[2025-03-01 08:20] LABS: Calcium 9.5 mg/dL (8.7-10.4)
[2025-03-01 08:24] LABS: Glucose 93 mg/dL (74-106)
[2025-03-01 08:25] LABS: BUN/Creatinine Ratio 33.8 (10.0-20.0); Blood Urea Nitrogen 22 mg/dL (9-23)
[2025-03-01] MEDS: AMIODARONE HCL 200 MG TAB PO SCH (09:12)
[2025-03-01] MEDS: DOCUSATE SOD 100 MG CAP PO SCH (09:12)
--- NOTE | 2025-03-01 11:34 | DVHPN2 ---
Progress Note - Dictate Date Seen: Mar 01, 2025 Medical Necessity Reason Pt with a Central, PICC or Fol: No Subjective Patient was lying comfortably in bed during my evaluation reports some continued postoperative hip pain that is being well managed with the help of pain medication. Patient notes that she was able to get up and walk with the help of physical therapy and her walker and has been performing gentle [id number] exercises while in bed. Patient is otherwise feeling well denying any other complaints or concerns during my evaluation. vital signs Vital Sign Date Time Temp Pulse Resp B/P (MAP) Pulse Ox O2 Delivery O2 Flow Rate FiO2 03/01/25 09:13 142/72 03/01/25 09:12 70 03/01/25 09:00 97.6 20 95 97.6 03/01/25 07:40 Room Air* 0 21 Total Intake and Output 02/28/25 02/28/25 03/01/25 15:00 23:00 07:00 Intake Total 1033.32 ml 350 ml Output Total 550 ml Balance 1033.32 ml -200 ml medications Current Medications Medications Dose Ordered Sig/Ata Route Start Time Stop Time Status Last Admin Dose Admin Pregabalin 50 mg BID PO 02/25/25 22:00 03/01/25 09:11 50 MG Apixaban 2.5 mg BID PO 02/26/25 10:00 04/02/25 09:59 03/01/25 09:12 2.5 MG Acetaminophen 650 mg Q6HP PO 02/25/25 12:00 02/25/25 17:54 650 MG Ondansetron HCl 4 mg Q4HP PRN IV 02/25/25 11:45 Oxycodone HCl 5 mg Q4HP PRN PO 02/25/25 11:30 02/28/25 14:39 5 MG Oxycodone HCl 10 mg Q4HP PRN PO 02/25/25 11:30 03/01/25 09:13 10 MG Amlodipine Besylate 5 mg BID PO 02/27/25 22:00 03/01/25 09:13 5 MG Metoprolol Tartrate 25 mg BID PO 02/28/25 10:00 03/01/25 09:12 25 MG Atorvastatin Calcium 40 mg HS PO 02/28/25 22:00 02/28/25 22:19 40 MG Amiodarone HCl 200 mg Q12HR PO 03/01/25 10:00 03/01/25 09:12 200 MG Docusate Sodium 100 mg BID PO 03/01/25 10:00 03/01/25 09:12 100 MG objective A&O x4 in no acute distress Hip range of motion grossly limited with pain on movement Delroy dressing clean, dry, intact, and maintaining suction No distal edema or calf tenderness to palpation Neurovascularly intact with cap refill less than 2 seconds laboratory and microbiology Laboratory Tests 03/01/25 06:14 Test 03/01/25 06:14 Range/Units Serum Glucose 93 74-106 mg/dL Assessment/Plan Continue current management as well as pain control and physical therapy and patient to remain weight-bearing as tolerated with the assistance of a walker. Cardiology is on board and currently observing patient. We will continue observing patient. Plan discussed with: Patient DENIZ RODRIGUEZ Mar 01, 2025 11:34
--- NOTE | 2025-03-01 16:00 | DVHPN2 ---
Subjective The patient is seen and examined at bedside. Complain of severe pain in the surgery area Reviewed: Care Plan, H&P, Labs, Medications, Previous Orders, Radiology Changes from previous H/P or p: No Changes Objective Vitals Vital Signs Date Time Temp Pulse Resp B/P (MAP) Pulse Ox O2 Delivery O2 Flow Rate FiO2 03/01/25 12:37 98.6 63 20 130/58 (82) 93 98.6 03/01/25 07:40 Room Air* 0 21 Intake/Output Intake and Output 03/01/25 07:00 Intake Total 1383.32 ml Output Total 550 ml Balance 833.32 ml Intake Oral 1300 ml IV Total 83.32 ml Output Urine Total 550 ml # Voids 4 General Appearance: Alert, Oriented X3, Cooperative, mild distress HEENT: Atraumatic, PERRLA, EOMI, Mucous membr. moist/pink Neck: Supple Lungs: Clear to auscultation, Normal air movement Cardiovascular: Regular rate, Normal S1, Normal S2 Abdomen: Normal bowel sounds Musculoskeletal: Other (Limited range of motion on lower extremity due to pain) Neuro: Cranial nerves 3-12 NL Medications Current Medications Medications Dose Ordered Sig/Ata Route Start Time Stop Time Status Last Admin Dose Admin Pregabalin 50 mg BID PO 02/25/25 22:00 03/01/25 09:11 50 MG Apixaban 2.5 mg BID PO 02/26/25 10:00 04/02/25 09:59 03/01/25 09:12 2.5 MG Acetaminophen 650 mg Q6HP PO 02/25/25 12:00 02/25/25 17:54 650 MG Ondansetron HCl 4 mg Q4HP PRN IV 02/25/25 11:45 Oxycodone HCl 5 mg Q4HP PRN PO 02/25/25 11:30 02/28/25 14:39 5 MG Oxycodone HCl 10 mg Q4HP PRN PO 02/25/25 11:30 03/01/25 09:13 10 MG Amlodipine Besylate 5 mg BID PO 02/27/25 22:00 03/01/25 09:13 5 MG Metoprolol Tartrate 25 mg BID PO 02/28/25 10:00 03/01/25 09:12 25 MG Atorvastatin Calcium 40 mg HS PO 02/28/25 22:00 02/28/25 22:19 40 MG Amiodarone HCl 200 mg Q12HR PO 03/01/25 10:00 03/01/25 09:12 200 MG Docusate Sodium 100 mg BID PO 03/01/25 10:00 03/01/25 09:12 100 MG Laboratory Results Laboratory Tests 03/01/25 06:14 Chemistry Test 03/01/25 06:14 Calcium Level 9.5 mg/dL (8.7-10.4) Labs and/or images reviewed: Labs reviewed by me Assessment/Plan Assessment/Plan 1. New onset atrial fibrillation on amiodarone drip. Waiting for echo. Cardiology input appreciated 2. Status post left hip surgery due to avascular necrosis. Continuing with physical therapy. Continuing with pain medication. 3. Hypertension, continuing amlodipine This medical document was created using an electronic medical record system with [employer] direct computerized dictation system. Although this document has been carefully reviewed, there may still be some phonetic and typographical errors. These areas are purely typographical due to imperfections of the software programs, and do not reflect any compromise in the patient's medical care. Plan discussed with: Patient Date of Service: Mar 01, 2025 Billing Provider: CARLOS NGUYEN MD Common Visit Codes: [id number] INP/OBS CARE(HIGH) CARLOS NGUYEN MD Mar 01, 2025 16:00
[2025-03-02] VITALS (8 sets, daily range): BP systolic 113–134; BP diastolic 58–71; PULSE 57–70; RESP 17–20; TEMP 97.7–98.9; O2SAT 93–95
--- NOTE | 2025-03-02 12:06 | DVHPN2 ---
Progress Note - Dictate Date Seen: Mar 02, 2025 Medical Necessity Reason Pt with a Central, PICC or Fol: No Subjective Patient was lying comfortably in bed during my evaluation reports some continued postoperative hip pain that is being well managed with the help of pain medication. Patient notes that she was able to get up and walk with the help of physical therapy and has been able to get to her room door and back to her bed with her walker and has been performing gentle lcouz-ly-cltcir exercises while in bed. Patient is otherwise feeling well denying any other complaints or concerns during my evaluation. vital signs Vital Sign Date Time Temp Pulse Resp B/P (MAP) Pulse Ox O2 Delivery O2 Flow Rate FiO2 03/02/25 10:28 66 128/67 03/02/25 09:00 98.8 20 94 98.8 03/02/25 08:00 Room Air* 0 21 Total Intake and Output 03/01/25 03/01/25 03/02/25 15:00 23:00 07:00 Intake Total 476 ml 466 ml 520 ml Output Total 500 ml 400 ml Balance 476 ml -34 ml 120 ml medications Current Medications Medications Dose Ordered Sig/Ata Route Start Time Stop Time Status Last Admin Dose Admin Pregabalin 50 mg BID PO 02/25/25 22:00 03/02/25 10:28 50 MG Apixaban 2.5 mg BID PO 02/26/25 10:00 04/02/25 09:59 03/02/25 10:28 2.5 MG Acetaminophen 650 mg Q6HP PO 02/25/25 12:00 02/25/25 17:54 650 MG Ondansetron HCl 4 mg Q4HP PRN IV 02/25/25 11:45 Oxycodone HCl 5 mg Q4HP PRN PO 02/25/25 11:30 02/28/25 14:39 5 MG Oxycodone HCl 10 mg Q4HP PRN PO 02/25/25 11:30 03/02/25 10:29 10 MG Amlodipine Besylate 5 mg BID PO 02/27/25 22:00 03/02/25 10:28 5 MG Metoprolol Tartrate 25 mg BID PO 02/28/25 10:00 03/02/25 10:28 25 MG Atorvastatin Calcium 40 mg HS PO 02/28/25 22:00 03/01/25 21:41 40 MG Amiodarone HCl 200 mg Q12HR PO 03/01/25 10:00 03/02/25 10:27 200 MG Docusate Sodium 100 mg BID PO 03/01/25 10:00 03/02/25 10:27 100 MG objective A&O x4 in no acute distress Hip range of motion grossly limited with pain on movement Delroy dressing clean, dry, intact, and maintaining suction No distal edema or calf tenderness to palpation Neurovascularly intact with cap refill less than 2 seconds laboratory and microbiology Laboratory Tests 03/01/25 06:14 Test 03/01/25 06:14 Range/Units Serum Glucose 93 74-106 mg/dL Assessment/Plan Continue current management as well as pain control and physical therapy and patient to remain weight-bearing as tolerated with the assistance of a walker. Cardiology is on board and currently observing patient, pending clearance. We will continue observing patient and will likely discharge home tomorrow pending cardiology evaluation. Dietary Evaluation Review Comments: 1) Jimbo 1 pk BID 2) Continue current plan of care Expected Outcomes/Goals: Wound to improve Fu 5-7 days Plan discussed with: Patient DENIZ RODRIGUEZ Mar 02, 2025 12:06
--- NOTE | 2025-03-02 12:37 | DVHPN2 ---
Subjective The patient is seen and examined at bedside. Complain of leg pain still. No fever or chill. Reviewed: Care Plan, H&P, Labs, Medications, Previous Orders, Radiology Changes from previous H/P or p: No Changes Objective Vitals Vital Signs Date Time Temp Pulse Resp B/P (MAP) Pulse Ox O2 Delivery O2 Flow Rate FiO2 03/02/25 10:28 66 128/67 03/02/25 09:00 98.8 20 94 98.8 03/02/25 08:00 Room Air* 0 21 Intake/Output Intake and Output 03/02/25 07:00 Intake Total 1462 ml Output Total 900 ml Balance 562 ml Intake Oral 1462 ml Output Urine Total 900 ml # Bowel Movements 2 General Appearance: Alert, Cooperative, mild distress HEENT: Atraumatic, PERRLA, EOMI, Mucous membr. moist/pink Neck: Supple Lungs: Clear to auscultation, Normal air movement Cardiovascular: Regular rate, Normal S1, Normal S2 Abdomen: Normal bowel sounds, Soft, No tenderness Musculoskeletal: Other (Limited range of motion due to pain) Neuro: Cranial nerves 3-12 NL Medications Current Medications Medications Dose Ordered Sig/Ata Route Start Time Stop Time Status Last Admin Dose Admin Pregabalin 50 mg BID PO 02/25/25 22:00 03/02/25 10:28 50 MG Apixaban 2.5 mg BID PO 02/26/25 10:00 04/02/25 09:59 03/02/25 10:28 2.5 MG Acetaminophen 650 mg Q6HP PO 02/25/25 12:00 02/25/25 17:54 650 MG Ondansetron HCl 4 mg Q4HP PRN IV 02/25/25 11:45 Oxycodone HCl 5 mg Q4HP PRN PO 02/25/25 11:30 02/28/25 14:39 5 MG Oxycodone HCl 10 mg Q4HP PRN PO 02/25/25 11:30 03/02/25 10:29 10 MG Amlodipine Besylate 5 mg BID PO 02/27/25 22:00 03/02/25 10:28 5 MG Metoprolol Tartrate 25 mg BID PO 02/28/25 10:00 03/02/25 10:28 25 MG Atorvastatin Calcium 40 mg HS PO 02/28/25 22:00 03/01/25 21:41 40 MG Amiodarone HCl 200 mg Q12HR PO 03/01/25 10:00 03/02/25 10:27 200 MG Docusate Sodium 100 mg BID PO 03/01/25 10:00 03/02/25 10:27 100 MG Laboratory Results Laboratory Tests 03/01/25 06:14 Labs and/or images reviewed: Labs reviewed by me Assessment/Plan Assessment/Plan 1. New onset atrial fibrillation on amiodarone drip. Waiting for echo. Cardiology input appreciated 2. Status post left hip surgery due to avascular necrosis. Continuing with physical therapy. Continuing with pain medication. 3. Hypertension, continuing amlodipine Discharge planning. The patient she wanted to go home not rehab. This medical document was created using an electronic medical record system with [employer] direct computerized dictation system. Although this document has been carefully reviewed, there may still be some phonetic and typographical errors. These areas are purely typographical due to imperfections of the software programs, and do not reflect any compromise in the patient's medical care. Plan discussed with: Patient Date of Service: Mar 02, 2025 Billing Provider: CARLOS NGUYEN MD Common Visit Codes: [id number] INP/OBS CARE(HIGH) CARLOS NGUYEN MD Mar 02, 2025 12:37
--- NOTE | 2025-03-02 15:48 | DVHSR ---
APPROVED REPORT EXAM: Two-dimensional and M-mode echocardiogram with Doppler and color Doppler. Blood Pressure: 135/73 mmHg INDICATION EVALUATE CARDIAC FUNCTION RISK FACTORS Height: 5'1, Weight: 148 DIMENSIONS LVDd3.8 (3.8-5.7cm)LA (2D)4.7 (1.9-4.0cm)Aortic Root2.8 (2.0-3.7cm) LVDs2.6 (2.5-4.0cm)LA (MM) (1.9-4.0cm)Aortic Cusp Exc1.2 (1.5-2.0cm) EF (%) 60.0 (55-70%)Rt. Atrium4.0 (1.9-4.0cm)Asc. Aorta cm IVSd1.2 (0.7-1.1cm)RV (D)3.8 (1.8-2.4cm) PWd0.9 (0.7-1.1cm) Mitral Valve MitralMitral Stenosis E wave0.90m/sMV Mean GR.mmHg A wave1.28m/sMV Peak GR.108mmHg E/A ratio0.72D MVAcm2 DECEL [id number] 1/2 Timems Aortic Valve Aortic ValveAortic Stenosis V11.39m/Stacy Mean GR.7mmHg V21.83m/Stacy Peak GR.13mmHg LVOT Diameter2.0 (1.8-2.4cm)Doppler AVA2.39cm2 Pulmonic Valve V20.83m/s Tricuspid Valve TR Velocity2.52m/s [id number] Conclusion Sinus rhythm. Biatrial enlargement. Moderate mitral annular calcification at the base of the posterior mitral leaflet. The aortic tricus pid and pulmonic or structurally normal. EF of 65% with normal RV function. [id number] mitral insufficiency. Moderate tricuspid regurgitation. Mild pulmonic insufficienc y. Impaired diastolic relaxation. No intracardiac masses thrombi or vegetations discernible.
[2025-03-03] VITALS (7 sets, daily range): BP systolic 112–128; BP diastolic 45–69; PULSE 59–66; RESP 18–20; TEMP 36.9; O2SAT 92–96
[2025-03-03 10:56] LABS: Hematocrit 28.4 % (36.0-46.0); Hemoglobin 9.7 g/dL (12.2-16.2); Mean Corpuscular Hemoglobin 34.9 pg (28.0-32.0)
[2025-03-03 11:02] LABS: Mean Corpuscular Volume 102.1 fL (80.0-100.0); Nucleated Red Blood Cells % 0.3 %
--- NOTE | 2025-03-03 11:04 | DVHPN2 ---
Consult Progress Note Subjective Other Systems: Patient is in normal sinus rhythm on classroom monitor. No events overnight on classroom monitor. Objective vital signs Vital Sign Date Time Temp Pulse Resp B/P (MAP) Pulse Ox O2 Delivery O2 Flow Rate FiO2 03/03/25 09:37 66 126/48 03/03/25 08:40 98.5 20 92 98.5 03/03/25 07:30 Room Air* 0 21 Total Intake and Output 03/02/25 03/02/25 03/03/25 15:00 23:00 07:00 Intake Total 240 ml 778 ml 800 ml Output Total 550 ml Balance 240 ml 228 ml 800 ml medications Current Medications Medications Dose Ordered Sig/Ata Route Start Time Stop Time Status Last Admin Dose Admin Pregabalin 50 mg BID PO 02/25/25 22:00 03/03/25 09:36 50 MG Apixaban 2.5 mg BID PO 02/26/25 10:00 04/02/25 09:59 03/03/25 09:37 2.5 MG Acetaminophen 650 mg Q6HP PO 02/25/25 12:00 02/25/25 17:54 650 MG Ondansetron HCl 4 mg Q4HP PRN IV 02/25/25 11:45 Oxycodone HCl 5 mg Q4HP PRN PO 02/25/25 11:30 03/02/25 16:46 5 MG Oxycodone HCl 10 mg Q4HP PRN PO 02/25/25 11:30 03/03/25 09:38 10 MG Amlodipine Besylate 5 mg BID PO 02/27/25 22:00 03/03/25 09:37 5 MG Metoprolol Tartrate 25 mg BID PO 02/28/25 10:00 03/03/25 09:37 25 MG Atorvastatin Calcium 40 mg HS PO 02/28/25 22:00 03/02/25 21:29 40 MG Amiodarone HCl 200 mg Q12HR PO 03/01/25 10:00 03/03/25 09:37 200 MG Docusate Sodium 100 mg BID PO 03/01/25 10:00 03/03/25 09:37 100 MG Examination: GENERAL:Normal, LUNGS:Normal, CVS:Normal, NEURO:Normal laboratory and microbiology Test 03/03/25 10:20 Range/Units Serum Glucose Pending Problem List/Assessment/Plan Problem List/Assessment/Plan Atrial fibrillation with rapid ventricular response, new onset, now normal sinus rhythm Hypertension Dyslipidemia Tricuspid regurgitation, moderate degree Status post left total hip arthroplasty Plan/Recommendation (Dr. German): * Transthoracic echocardiogram reveals EF 65% * [id number] VASc score: 4 points, HAS-BLED score: 1 point * NOAC therapy, Eliquis * Continue antiarrhythmic agent, oral amiodarone 200mg (daily, given age) * Continue beta-vandana for rate control * Monitor and replete electrolytes as needed, keep potassium greater than four a nd magnesium greater than two * Lipid-lowering agent * Close Cardiac surveillance * Pain management per primary care team The patient has remained in NSR. Continue medical therapy as described above. There is no further inpatient cardiac workup indicated at this time. 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 Thank you for allowing us to care for this patient. Please call with any questions or concerns. This medical document was created using an electronic medical record system with voice recognition software and computerized dictation system. Although this document has been carefully reviewed, there might still be some phonetic and typographical errors. Occasional wrong-word or ``sound-alike substitutions may have occurred due to the inherent limitations of voice recognition software. These areas are purely typographical due to imperfections of the software programs and do not reflect any compromise in the patient's medical care. Please read the chart carefully and recognize, using context, where these substitutions have occurred. Plan discussed with: Patient Dietary Evaluation Review Comments: 1) Jimbo 1 pk BID 2) Continue current plan of care Expected Outcomes/Goals: Wound to improve Fu 5-7 days Date of Service: Mar 03, 2025 Billing Provider: CALE PALACIOS Common Visit Codes: [id number] INP/OBS CARE (HIGH), [id number] INP/OBS CARE(HIGH) CALE PALACIOS Mar 03, 2025 11:04
[2025-03-03 11:12] LABS: Chloride 104 mmol/L (98-107); Potassium 4.5 mmol/L (3.5-5.1); Sodium 139 mmol/L (136-145)
[2025-03-03 11:13] LABS: Anion Gap 7 (5-15); Calcium 9.4 mg/dL (8.7-10.4); Carbon Dioxide 28 mmol/L (20-31)
[2025-03-03 11:18] LABS: BUN/Creatinine Ratio 34.4 (10.0-20.0); Blood Urea Nitrogen 22 mg/dL (9-23); Glucose 102 mg/dL (74-106)
--- NOTE | 2025-03-03 11:20 | DVHPN2 ---
Progress Note Date Seen: Mar 03, 2025 Medical Necessity Reason Pt with a Central, PICC or Fol: No Subjective Patient reports: No new complaints Review of Systems: HEENT:Normal, CVS:Normal, RESPIRATORY:Normal, GI:Normal, :Normal, MSK:Normal, NEURO:Normal Objective vital signs Vital Sign Date Time Temp Pulse Resp B/P (MAP) Pulse Ox O2 Delivery O2 Flow Rate FiO2 03/03/25 09:37 66 126/48 03/03/25 08:40 98.5 20 92 98.5 03/03/25 07:30 Room Air* 0 21 Total Intake and Output 03/02/25 03/02/25 03/03/25 15:00 23:00 07:00 Intake Total 240 ml 778 ml 800 ml Output Total 550 ml Balance 240 ml 228 ml 800 ml medications Current Medications Medications Dose Ordered Sig/Ata Route Start Time Stop Time Status Last Admin Dose Admin Pregabalin 50 mg BID PO 02/25/25 22:00 03/03/25 09:36 50 MG Apixaban 2.5 mg BID PO 02/26/25 10:00 04/02/25 09:59 03/03/25 09:37 2.5 MG Acetaminophen 650 mg Q6HP PO 02/25/25 12:00 02/25/25 17:54 650 MG Ondansetron HCl 4 mg Q4HP PRN IV 02/25/25 11:45 Oxycodone HCl 5 mg Q4HP PRN PO 02/25/25 11:30 03/02/25 16:46 5 MG Oxycodone HCl 10 mg Q4HP PRN PO 02/25/25 11:30 03/03/25 09:38 10 MG Amlodipine Besylate 5 mg BID PO 02/27/25 22:00 03/03/25 09:37 5 MG Metoprolol Tartrate 25 mg BID PO 02/28/25 10:00 03/03/25 09:37 25 MG Atorvastatin Calcium 40 mg HS PO 02/28/25 22:00 03/02/25 21:29 40 MG Amiodarone HCl 200 mg Q12HR PO 03/01/25 10:00 03/03/25 09:37 200 MG Docusate Sodium 100 mg BID PO 03/01/25 10:00 03/03/25 09:37 100 MG Examination: GENERAL:Normal, HEENT:Normal, NECK:Normal, LUNGS:Normal, CVS:Normal, ABDOMEN:Normal, MSK:Normal, SKIN:Normal, NEURO:Normal, :Normal laboratory and microbiology Laboratory Tests 03/03/25 10:20 Test 03/03/25 10:20 Range/Units Serum Glucose 102 74-106 mg/dL Problem List/Assessment/Plan Problem List/Assessment/Plan ASSESSMENT AND PLAN: * Hypertension for which the patient will resume on amlodipine, increase dose * new onset a fib: now sinus, meds to pharmacy * Status post left hip surgery for avascular necrosis for which she will receive physical therapy and pain medications. dc planning per ortho Plan discussed with: Patient Dietary Evaluation Review Comments: 1) Jimbo 1 pk BID 2) Continue current plan of care Expected Outcomes/Goals: Wound to improve Fu 5-7 days Date of Service: Mar 03, 2025 Billing Provider: SYLVAIN GARDINER MD Common Visit Codes: [id number] INP/OBS CARE(HIGH) SYLVAIN GARDINER MD Mar 03, 2025 11:20
[2025-03-03] MEDS ORDERED: METO25TA36 PO (11:22)
[2025-03-03] MEDS ORDERED: AMIO200T43 PO (11:22)
[2025-03-03] MEDS ORDERED: APIX2.5T PO (11:22)
--- NOTE | 2025-03-03 12:12 | DVHDS2 ---
Discharge Summary Date of Admission Feb 25, 2025 at 11:28 Date of Discharge: Feb 26, 2025 Labs/Diagnostic Data: Laboratory Results Test 03/03/25 10:20 02/28/25 10:41 02/24/25 11:00 White Blood Count 7.3 10^3/uL (4.4-10.8) Red Blood Count 2.78 10^6/uL (4.0-5.20) Hemoglobin 9.7 g/dL (12.2-16.2) Hematocrit 28.4 % (36.0-46.0) Mean Corpuscular Volume 102.1 fL (80.0-100.0) Mean Corpuscular Hemoglobin 34.9 pg (28.0-32.0) Mean Corpuscular Hemoglobin Concent 34.2 g/dL (32.0-36.0) Red Cell Distribution Width 13.5 % (11.8-14.3) Platelet Count 267 10^3/uL (140-450) Mean Platelet Volume 6.7 fL (6.9-10.8) Neutrophils (%) (Auto) 65.4 % (37.0-80.0) Lymphocytes (%) (Auto) 14.8 % (10.0-50.0) Monocytes (%) (Auto) 16.5 % (0.0-12.0) Eosinophils (%) (Auto) 2.8 % (0.0-7.0) Basophils (%) (Auto) 0.5 % (0.0-2.0) Neutrophils # (Auto) 4.8 10 ^3/uL (1.6-8.6) Lymphocytes # (Auto) 1.1 10 ^3/uL (0.4-5.4) Monocytes # (Auto) 1.2 10 ^3/uL (0-1.3) Eosinophils # (Auto) 0.2 10 ^3/uL (0-0.8) Basophils # (Auto) 0 10 ^3/uL (0-0.2) Nucleated Red Blood Cells 0.3 % Sodium Level 139 mmol/L (136-145) Potassium Level 4.5 mmol/L (3.5-5.1) Chloride Level 104 mmol/L (98-107) Carbon Dioxide Level 28 mmol/L (20-31) Anion Gap 7 (5-15) Blood Urea Nitrogen 22 mg/dL (9-23) Creatinine 0.64 mg/dL (0.550-1.02) Glomerular Filtration Rate Calc 85 mL/min (>90) BUN/Creatinine Ratio 34.4 (10.0-20.0) Serum Glucose 102 mg/dL (74-106) Calcium Level 9.4 mg/dL (8.7-10.4) Hemoglobin A1c 5.1 % A1C (<5.7) Magnesium Level 2.0 mg/dL (1.6-2.6) Triglycerides Level 169 mg/dL (< 150) Cholesterol Level 162 mg/dL (< 200) LDL Cholesterol 106 mg/dL (< 100) HDL Cholesterol 32 mg/dL (40-59) Thyroid Stimulating Hormone (TSH) 2.08 uIU/mL (0.55-4.78) Prothrombin Time 10.5 sec (9.3-11.8) Prothrombin Time INR 0.99 (0.9-1.15) Activated Partial Thromboplast Time 27.6 SEC (24.5-34.5) Total Bilirubin 0.3 mg/dL (0.2-1.0) Aspartate Amino Transferase (AST) 29 U/L (13-40) Alanine Aminotransferase (ALT) 20 U/L (7-40) Alkaline Phosphatase 73 U/L (46-116) Total Protein 7.4 g/dL (5.7-8.2) Albumin 4.8 g/dL (3.2-4.8) Other Laboratory Tests 03/03/25 10:20 Brief Hx & Hospital Course: Patient was brought to the hospital last Monday to undergo a left total hip arthroplasty, she tolerated the procedure well without complications and was kept overnight for postoperative observation. She remained medically stable but the 2nd day postoperatively she developed chest palpitations and an EKG revealed AFib with RVR. She was kept additional days for cardiac workup and observation and was cleared for discharge home on today's evaluation by Cardiology. Patient has remained walking with the assistance of a walker and was able to get down the sanchez around the nurses station and back to her bed with some postoperative hip pain. Patient is otherwise feeling well denying any other complaint or concern during today's evaluation and is ready to go home. Condition at Discharge: Stable Final Diagnosis/Problems List Same Discharge Disposition: Home Discharge Instruct/Medications Diet: Regular Activity: See Comment Activity comment: Patient to remain weight-bearing as tolerated with the assistance of a walker. Follow Up/Referral: I instructed the patient to follow up with our office in 10-14 days for her 1st postoperative evaluation Medications: Rx sent via our outpatient EMR system Scheduled Amiodarone HCl (Amiodarone Hydrocloride), 200 MG PO DAILY Amlodipine Besylate (Amlodipine Besylate), 5 MG PO DAILY, (Reported) Apixaban Base (Eliquis), 2.5 MG PO BID Metoprolol Succinate (Toprol Xl), 25 MG PO DAILY Multiple Vitamin (Multivitamins), 1 TAB OR DAILY, (Reported) Scheduled PRN Ibuprofen (Ibuprofen), 800 MG PO PRN PRN for prn, (Reported) Discharge Statement: "Patient was advised to return to the ER or call 911 if any headaches, dizziness, shortness of breath, chest pain, abdominal pain, bleeding, fevers, or worsening of medical condition. Patient was counseled about treatment plan, medications, possible side effects, patientverbalized understanding. All questions were answered to the best of my ability. This discharge took greater then 30 minutes in planning, reviewing documentation, counseling the patient, and discussing with other team members." ASSESSMENT ASSESSMENT Hospital Course PATIENT WAS BROUGHT TO THE HOSPITAL YESTERDAY TO UNDERGO A LEFT TOTAL HIP ARTHROPLASTY. SHE TOLERATED THE PROCEDURE WELL WITHOUT COMPLICATIONS AND WAS KEPT OVERNIGHT FOR POSTOPERATIVE OBSERVATION. SHE HAS REMAINED MEDICALLY STABLE BUT REPORTS SOME SEVERE POSTOPERATIVE HIP PAIN LAST NIGHT THAT IS BEING WELL MANAGED NOW WITH THE HELP OF PAIN MEDICATION. PATIENT NOTES THAT SHE HAS ONLY BEEN ABLE TO STAND UP AT BEDSIDE BUT HAS NOT BEEN ABLE TO WALK WITH PHYSICAL THERAPY OF YET. PATIENT IS OTHERWISE FEELING WELL DENYING ANY OTHER COMPLAINTS OR CONCERNS DURING MY EVALUATION. I INSTRUCTED THE PATIENT TO THE IF SHE IS ABLE TO GET UP AND WALK WITH THE HELP OF PHYSICAL THERAPY AND HER WALKER AND SHE IS ABLE TO GET DOWN THE SANCHEZ AND TO THE NURSE'S STATION AND BACK TO HER ROOM WE MAY DISCHARGE HER HOME. PATIENT UNDERSTOOD AND AGREED. Assessment Same DENIZ RODRIGUEZ Mar 03, 2025 12:12
--- NOTE | 2025-03-03 12:14 | DVHPN2 ---
Progress Note - Dictate Date Seen: Mar 03, 2025 Medical Necessity Reason Pt with a Central, PICC or Fol: No Subjective Patient was lying comfortably in bed during my evaluation reports some continued postoperative hip pain that is being well managed with the help of pain medication. Patient notes that she was able to get up and walk with the help of physical therapy and has been able to get down the sanchez around the nurses station and back to her bed and continues to do gentle [id number] exercises while in bed. Patient is otherwise feeling well denying any other complaints or concerns during my evaluation. vital signs Vital Sign Date Time Temp Pulse Resp B/P (MAP) Pulse Ox O2 Delivery O2 Flow Rate FiO2 03/03/25 09:37 66 126/48 03/03/25 08:40 98.5 20 92 98.5 03/03/25 07:30 Room Air* 0 21 Total Intake and Output 03/02/25 03/02/25 03/03/25 15:00 23:00 07:00 Intake Total 240 ml 778 ml 800 ml Output Total 550 ml Balance 240 ml 228 ml 800 ml medications Current Medications Medications Dose Ordered Sig/Ata Route Start Time Stop Time Status Last Admin Dose Admin Pregabalin 50 mg BID PO 02/25/25 22:00 03/03/25 09:36 50 MG Apixaban 2.5 mg BID PO 02/26/25 10:00 04/02/25 09:59 03/03/25 09:37 2.5 MG Acetaminophen 650 mg Q6HP PO 02/25/25 12:00 02/25/25 17:54 650 MG Ondansetron HCl 4 mg Q4HP PRN IV 02/25/25 11:45 Oxycodone HCl 5 mg Q4HP PRN PO 02/25/25 11:30 03/02/25 16:46 5 MG Oxycodone HCl 10 mg Q4HP PRN PO 02/25/25 11:30 03/03/25 09:38 10 MG Metoprolol Tartrate 25 mg BID PO 02/28/25 10:00 03/03/25 09:37 25 MG Atorvastatin Calcium 40 mg HS PO 02/28/25 22:00 03/02/25 21:29 40 MG Amiodarone HCl 200 mg Q12HR PO 03/01/25 10:00 03/03/25 09:37 200 MG Docusate Sodium 100 mg BID PO 03/01/25 10:00 03/03/25 09:37 100 MG objective A&O x4 in no acute distress Hip range of motion grossly limited with pain on movement Delroy dressing clean, dry, intact, and maintaining suction No distal edema or calf tenderness to palpation Neurovascularly intact with cap refill less than 2 seconds laboratory and microbiology Laboratory Tests 03/03/25 10:20 Test 03/03/25 10:20 Range/Units Serum Glucose 102 74-106 mg/dL Assessment/Plan Patient was cleared by Cardiology and advised to follow up on an outpatient basis. Patient to be discharged home and advised her to remain weight-bearing as tolerated with the assistance of a walker and to maintain her dressing clean, dry, intact, and maintaining suction and to call our office to schedule her 1st postoperative evaluation in 10-14 days and to call our office if she has any remaining questions or concerns. Rx sent via our outpatient EMR system. She understood and agreed. Dietary Evaluation Review Comments: 1) Jimbo 1 pk BID 2) Continue current plan of care Expected Outcomes/Goals: Wound to improve Fu 5-7 days Plan discussed with: Patient DENIZ RODRIGUEZ Mar 03, 2025 12:14
== END 2025-03-03 18:00 | disposition home health service (06) | DRG 470 ==
LOC: SUR 07:41 → OVERFLOW 11:28 → WEST WING 15:47 → TELE-WESTW 02-28 19:24
PROVIDERS: ADMIT Internal Medicine; ATTEND Internal Medicine
PROC: 0SRB04A Replacement of Left Hip Joint with Ceramic on Polyethylene Synthetic Substitute, Uncemented, Open Approach (ICD-10-PCS; principal; 2025-02-25 09:55)
DX: M16.12 Unilateral primary osteoarthritis, left hip (principal); M87.852 Other osteonecrosis, left femur; I10 Essential (primary) hypertension; E78.5 Hyperlipidemia, unspecified; I48.91 Unspecified atrial fibrillation; Z79.1 Long term (current) use of non-steroidal anti-inflammatories (NSAID); Z96.652 Presence of left artificial knee joint; Z79.899 Other long term (current) drug therapy
CPT/HCPCS: 36415; 72170; 80048; 80053; 80061; 83036; 83735; 84443; 85025; 85610; 85730; 86850; 86900; 86901; 93005; 93306; 97110; 97116; 97163; 97530; G0378; J0131; J0169; J1885; J2250; J2704; J3490